=== PATIENT | female | born 1970 | race Caucasian/White ===

== ENCOUNTER → 2016-06-05 | Outpatient (CLI) | payer BC | LOC: ECHO 12:17 | DX: R07.9 Chest pain, unspecified (principal); R06.02 Shortness of breath; R94.31 Abnormal electrocardiogram [ECG] [EKG]; R00.2 Palpitations; R55 Syncope and collapse; R42 Dizziness and giddiness; R53.82 Chronic fatigue, unspecified; R01.1 Cardiac murmur, unspecified; R60.9 Edema, unspecified; I35.1 Nonrheumatic aortic (valve) insufficiency | CPT/HCPCS: ECHO; 93306 ==

== ENCOUNTER → 2016-07-03 | Outpatient (CLI) | payer BC | LOC: CT 07:58 | DX: R42 Dizziness and giddiness (principal); R55 Syncope and collapse; R53.82 Chronic fatigue, unspecified; R06.02 Shortness of breath; R22.1 Localized swelling, mass and lump, neck | CPT/HCPCS: 70450; 70498; J7050; Q9963 ==